=== PATIENT | female | born 1950 | race Caucasian/White ===

== ENCOUNTER 2017-04-02 08:23 | Outpatient (CLI) | payer OTHER | END 2017-04-02 19:27 | disposition home or self-care (01) | LOC: SMA 08:23 | PROVIDERS: ATTEND Family Medicine | DX: Z12.31 Encounter for screening mammogram for malignant neoplasm of breast (principal) | CPT/HCPCS: G0202 ==

== ENCOUNTER 2018-04-11 13:30 | Outpatient (CLI) | payer OTHER | END 2018-04-12 11:26 | disposition home or self-care (01) | LOC: SMA 13:30 | PROVIDERS: ATTEND Family Medicine | DX: Z12.31 Encounter for screening mammogram for malignant neoplasm of breast (principal) | CPT/HCPCS: 77067 ==

== ENCOUNTER 2019-04-03 11:10 | Outpatient (CLI) | payer OTHER | END 2019-04-03 20:30 | disposition home or self-care (01) | LOC: SMA 11:10 | PROVIDERS: ATTEND Family Medicine | DX: Z12.31 Encounter for screening mammogram for malignant neoplasm of breast (principal) | CPT/HCPCS: 77067 ==

== ENCOUNTER 2020-05-10 10:16 | Outpatient (CLI) | payer OTHER | END 2020-05-10 21:11 | disposition home or self-care (01) | LOC: SMA 10:16 | PROVIDERS: ATTEND Family Medicine | DX: Z12.31 Encounter for screening mammogram for malignant neoplasm of breast (principal); N64.89 Other specified disorders of breast | CPT/HCPCS: 77067 ==

== ENCOUNTER 2021-05-13 08:15 | Outpatient (CLI) | payer OTHER | END 2021-05-13 14:00 | disposition home or self-care (01) | LOC: SMA 08:15 | PROVIDERS: ATTEND Family Medicine | DX: Z12.31 Encounter for screening mammogram for malignant neoplasm of breast (principal) | CPT/HCPCS: 77067 ==